=== PATIENT | female | born 1950 | race Two or more races ===

== ENCOUNTER → 2020-11-23 | Outpatient (CLI) | payer OTHER | END | disposition home or self-care (01) | LOC: OFIC 805 14:00 | PROVIDERS: ATTEND Otolaryngology | DX: J30.89 Other allergic rhinitis (principal); K21.01 Gastro-esophageal reflux disease with esophagitis, with bleeding; R13.0 Aphagia; R09.89 Other specified symptoms and signs involving the circulatory and respiratory systems ==